=== PATIENT | female | born 1955 | race American Indian/Alaskan Native ===

== ENCOUNTER 2016-07-12 07:55 | Inpatient (IN) | payer OTHER ==
[2016-07-12 08:44] LABS: Basophils % (Auto) 0.2 % (0.0-1.8); Eosinophils % (Auto) 3.1 % (0.0-4.3); Hematocrit 35.9 % (30.3-42.9); Hemoglobin 11.5 gm/dl (10.1-14.3); Mean Corpuscular HGB Conc 32 % (30-34); Mean Corpuscular Hemoglobin 26 pg (28-32); Mean Corpuscular Volume 82 fl (79-97); Platelet Count 227 K/mm3 (140-440); Red Blood Count 4.38 M/mm3 (3.65-5.03); Red Cell Distribution Width 14.5 % (13.2-15.2)
[2016-07-12 09:31] LABS: Alanine Aminotransferase 29 units/L (7-56); Albumin/Globulin Ratio 1.2 %; Alkaline Phosphatase 108 units/L (35-129); Anion Gap 18 mmol/L; BUN/Creatinine Ratio 21.66; Blood Urea Nitrogen 13 mg/dL (7-17); Calcium 9.4 mg/dL (8.4-10.2); Carbon Dioxide 27 mmol/L (22-30); Chloride 98.6 mmol/L (98-107); Glucose 118 mg/dL (65-100); Lipase 27 units/L (13-60); Potassium 3.8 mmol/L (3.6-5.0); Sodium 140 mmol/L (137-145); Total Protein 7.3 g/dL (6.3-8.2)
[2016-07-12] MEDS ORDERED: NORCO 5/325 PO ONE (09:45)
--- NOTE | 2016-07-12 09:52 | Emergency Department Report ---
HPI - General Chief Complaint: Abdominal Pain Time Seen by Provider: 07/12/16 09:23 - HPI HPI: This is a 61-year-old female who presents to the emergency department with a two-week history of right upper quadrant and flank abdominal pain. This is associated with some nausea and vomiting. She denies any fever, dysuria, vaginal bleeding, vaginal discharge, back pain, shortness of breath, chest pain or headache. She says that the pain does not worsen or is not affected by eating. She also complains of some recent lower extremity pain worse on the left side. She denies any skin color change, swelling, but does have some recent travel from [place] within the past month. She is not currently have a primary care doctor here. She took a tramadol for her pain today with some relief. No sick contacts at home. She has a past medical history of diabetes, hypertension and hyperlipidemia. She has a past surgical history of hysterectomy. ED Past Medical Hx - Past Medical History Hx Hypertension: Yes Hx Diabetes: Yes Additional medical history: HYPERLIPIDEMIA - Surgical History Additional Surgical History: HYSTERECTOMY - Social History Smoking Status: Never Smoker Substance Use Type: Prescribed - Medications Home Medications: Home Medications Medication Instructions Recorded Confirmed Last Taken Type Lisinopril [Zestril TAB] 40 mg PO QDAY 07/12/16 07/12/16 Unknown History Simvastatin [Zocor TAB] 20 mg PO QHS 07/12/16 07/12/16 Unknown History glipiZIDE [Glucotrol] 5 mg PO BID 07/12/16 07/12/16 Unknown History metFORMIN [Glucophage] 1,000 mg PO BID 07/12/16 07/12/16 Unknown History traMADol [Ultram] 50 mg PO BID 07/12/16 07/12/16 07/12/16 History ED Review of Systems ROS: Stated complaint: DIABETIC Other details as noted in HPI Comment: All other systems reviewed and negative Constitutional: denies: chills, fever Eyes: denies: eye pain, eye discharge, vision change ENT: denies: ear pain, throat pain Respiratory: denies: cough, shortness of breath, wheezing Cardiovascular: denies: chest pain, palpitations Gastrointestinal: abdominal pain, nausea, vomiting Genitourinary: denies: urgency, dysuria, discharge Musculoskeletal: myalgia. denies: back pain, joint swelling Skin: denies: rash, lesions Neurological: denies: headache, weakness, paresthesias Physical Exam - Physical Exam Vital Signs: Vital Signs 07/12/16 08:09 Temperature 99.3 F Pulse Rate 97 H Respiratory 19 Rate Blood Pressure 140/87 O2 Sat by Pulse 96 Oximetry Physical Exam: GENERAL: The patient is well-developed well-nourished. HEENT: Normocephalic. Atraumatic. Extraocular motions are intact. Patient has moist mucous membranes. Pupils equal reactive to light bilaterally. NECK: Supple. Trachea is midline. CHEST/LUNGS: Clear to auscultation. There is no respiratory distress noted. HEART/CARDIOVASCULAR: Regular. There is no tachycardia. There is no gallop rub or murmur. ABDOMEN: Abdomen is soft. There is some reproducible tenderness to palpation to the right upper quadrant of the abdomen but the right flank pain is not reproducible to palpation. No guarding or rebound tenderness. Patient has normal bowel sounds. There is no abdominal distention. SKIN: Skin is warm and dry. No appreciable edema. NEURO: The patient is awake, alert, and oriented. The patient is cooperative. The patient has no focal neurologic deficits. The patient has normal speech. MUSCULOSKELETAL: There is no tenderness or deformity. There is no limitation range of motion. There is no evidence of acute injury. Pedal pulses +2 over 4 bilaterally. Cap refill less than 2 seconds. ED Course Vital Signs 07/12/16 08:09 Temperature 99.3 F Pulse Rate 97 H Respiratory 19 Rate Blood Pressure 140/87 O2 Sat by Pulse 96 Oximetry ED Medical Decision Making - Lab Data Result diagrams: 07/12/16 08:22 07/12/16 08:22 - Radiology Data Radiology results: report reviewed Bilateral lower extremity venous Doppler is positive for acute DVT noted on the right to be the posterior tibial vein extending to the posterior peroneal trunk and on the left from the posterior tibial vein and peroneal vein extending to the popliteal vein. RIGHT UPPER QUADRANT ULTRASOUND: HISTORY: Right upper quadrant pain. Technique: Transabdominal ultrasound imaging with Doppler interrogation. FINDINGS: The liver is normal size and contour. There are numerous ill-defined hypodense liver lesions scattered throughout the liver highly concerning for metastatic process. The largest lesion measures 3.8 x 4.0 cm in the right hepatic lobe. No obvious underlying liver parenchymal disease is appreciated. The gallbladder is sonolucent with no evidence of stones, polyps or wall thickening. The common duct is normal in caliber. Images of the pancreas, right kidney and aorta are within normal limits. No perihepatic ascites. IMPRESSION: Multiple liver masses are identified highly concerning for metastatic process. Cancer workup is recommended. Transcribed By: ISMAEL Dictated By: LISA GUERRA JR, MD Electronically Authenticated By: LISA GUERRA JR, MD Signed Date/Time: 07/12/[address] SCAN OF THE ABDOMEN AND PELVIS WITH CONTRAST: HISTORY: Abdominal pain. TECHNIQUE: Helical CT in 1.25mm intervals following IV contrast. Sagittal and coronal reconstructions. FINDINGS: The ultrasound right upper quadrant performed earlier today was again reviewed. CT also demonstrates numerous hypodense lesions throughout the liver consistent with a metastatic process. No underlying liver disease is appreciated. Borderline to mildly enlarged celiac axis lymph nodes are identified measuring up to 1.7 cm. The gallbladder and biliary system are unremarkable. The spleen and pancreas demonstrate a normal size and attenuation with no evidence of abnormal mass. The kidneys are normal in size and position with no evidence of hydronephrosis or mass. The adrenal glands are normal. The abdominal aorta is normal. The GI system is incompletely evaluated on this exam without oral contrast. There is no gross obstruction or large obstructing mass. Oral contrast examination is recommended. There is no evidence of peritoneal air or fluid. There is no evidence of any abnormal masses or fluid collections within the pelvis. The bladder is normal. Umbilical hernia containing fat is noted. IMPRESSION: Multiple hypodense liver masses are identified consistent with a metastatic process. Celiac axis adenopathy. The primary lesion is not clearly evident on this exam. Transcribed By: ISMAEL Dictated By: LISA GUERRA JR, MD Electronically Authenticated By: LISA GUERRA JR, MD Signed Date/Time: 07/12/16 1149 - Medical Decision Making This is a 61-year-old [place] female who presents with 2 complaints. She's been having some acute on chronic upper right abdominal pain and flank pain over the past 2-3 weeks. She also has been having some lower extremity pain and /or burning sensations. Due to the patient's recent history of a long flight from [facility] to [place] to [place], along with the lower extremity pain, a bilateral venous Doppler was done that resulted showing acute DVT bilaterally. The patient's labs have been mostly unremarkable. However with her right upper quadrant abdominal pain, a right upper quadrant ultrasound was done that came back showing multiple liver lesions/masses concerning for metastatic disease. A CT of the abdomen and pelvis was also done after this without any contrast that resulted the same with multiple liver lesions concerning for metastatic disease. The patient was given a dose of Lovenox at 1 unit per kilogram as a therapeutic dose for a DVT. She will be admitted to the hospital for further evaluation and treatment of both the bilateral DVT and her liver lesions. It should be noted that the family was all supposed to fly out of [place] tomorrow and with the patient's found conditions and admission, she will be missing her flight. I agreed to write a letter that the family could use to show the airline in the hopes that they will refund or may concessions regarding this missed flight. The patient's name, date of and the fact that she is in the hospital for admission was listed on the letter and I was given permission for this by the family who holds the letter and will do with it with a desire. No actual lab, imaging or physical exam results, nor any vital signs or any further medical information was given. - Differential Diagnosis malignancy, cholelithiasis, cholecystitis, pancreatitis, hepatitis, DVT, ne Critical Care Time: No Critical care attestation.: If time is entered above; I have spent that time in minutes in the direct care of this critically ill patient, excluding procedure time. ED Disposition Clinical Impression: Liver masses DVT, bilateral lower limbs Qualifiers: Affected thrombotic vein of extremity: unspecified vein of extremity Chronicity : acute Qualified Code(s): I82.403 - Acute embolism and thrombosis of unspecified deep veins of lower extremity, bilateral Abdominal pain Qualifiers: Abdominal location: right upper quadrant Qualified Code(s): R10.11 - Right upper quadrant pain Disposition: OP ADMITTED IP TO THIS HOSP Is pt being admited?: Yes Condition: Stable Instructions: Abdominal Pain (ED) Referrals: PRIMARY CARE, [Primary Care Provider] - 3-5 Days Time of Disposition: 12:33
[2016-07-12 09:59] LABS: Bilirubin,Urine NEG (Negative); Blood,Urine SM (Negative); Ketones,Urine NEG (Negative); Leukocyte Esterase,Urine NEG (Negative); Nitrite,Urine NEG (Negative); Protein,Urine <15 mg/dL mg/dL (Negative); Urobilinogen,Urine < 2.0 mg/dL (<2.0); WBC,Urine < 1.0 /HPF (0.0-6.0)
--- NOTE | 2016-07-12 10:48 | Ultrasound Report ---
RIGHT UPPER QUADRANT ULTRASOUND: HISTORY: Right upper quadrant pain. Technique: Transabdominal ultrasound imaging with Doppler interrogation. FINDINGS: The liver is normal size and contour. There are numerous ill-defined hypodense liver lesions scattered throughout the liver highly concerning for metastatic process. The largest lesion measures 3.8 x 4.0 cm in the right hepatic lobe. No obvious underlying liver parenchymal disease is appreciated. The gallbladder is sonolucent with no evidence of stones, polyps or wall thickening. The common duct is normal in caliber. Images of the pancreas, right kidney and aorta are within normal limits. No perihepatic ascites. IMPRESSION: Multiple liver masses are identified highly concerning for metastatic process. Cancer workup is recommended.
[2016-07-12] MEDS ORDERED: LOVENOX SUB-Q ONE (11:10)
--- NOTE | 2016-07-12 11:57 | Cat Scan Report ---
CT SCAN OF THE ABDOMEN AND PELVIS WITH CONTRAST: HISTORY: Abdominal pain. TECHNIQUE: Helical CT in 1.25mm intervals following IV contrast. Sagittal and coronal reconstructions. FINDINGS: The ultrasound right upper quadrant performed earlier today was again reviewed. CT also demonstrates numerous hypodense lesions throughout the liver consistent with a metastatic process. No underlying liver disease is appreciated. Borderline to mildly enlarged celiac axis lymph nodes are identified measuring up to 1.7 cm. The gallbladder and biliary system are unremarkable. The spleen and pancreas demonstrate a normal size and attenuation with no evidence of abnormal mass. The kidneys are normal in size and position with no evidence of hydronephrosis or mass. The adrenal glands are normal. The abdominal aorta is normal. The GI system is incompletely evaluated on this exam without oral contrast. There is no gross obstruction or large obstructing mass. Oral contrast examination is recommended. There is no evidence of peritoneal air or fluid. There is no evidence of any abnormal masses or fluid collections within the pelvis. The bladder is normal. Umbilical hernia containing fat is noted. IMPRESSION: Multiple hypodense liver masses are identified consistent with a metastatic process. Celiac axis adenopathy. The primary lesion is not clearly evident on this exam.
[2016-07-12] MEDS ORDERED: D50W (25GM) IV PRN (13:24)
--- NOTE | 2016-07-12 13:36 | History and Physical Report ---
History of Present Illness Date of examination: 07/12/16 Chief complaint: Abdominal pain History of present illness: 61-year-old Lebanese female with past medical history significant for hypertension, hyperlipidemia, diabetes mellitus presented to the emergency department complaining of abdominal pain that started 6 hours ago. Pain is in the right upper quadrant area, pinching type, 10 out of 10, with no radiation, exacerbating factors identified, pain relieved with pain medications. Patient is also complaining bilateral pain in the lower extremities, with associated swelling. Patient traveled recently from [facility]. Patient had with loss of 16 pounds over 4 months. No fever, chills, loss of appetite. Patient had occasional cough. REVIEW OF SYSTEMS: GENERAL: + weight loss, no fatigue, no fever HEAD: no head ache EYES: no blurry vision, no acute visual loss EARS: no hearing loss, no discharge, no earache NOSE: no stuffiness, no sneezing, no discharge MOUTH, THROAT AND NECK: no bleeding gums, no sore throat, no swollen neck CARDIAC: no palpitations, no dyspnea on exertion, no orthopnea, no PND, no edema , no chest pain RESPIRATORY: no shortness of breath, no wheeze, no cough, no sputum, no hemoptysis, no asthma GI: no decreased appetite, no nausea, no vomiting, no dysphagia, no diarrhea, no constipation, RUQ abdominal pain URINARY: no change in frequency, no urgency, no polyuria, no hematuria, no incontinence MUSCULOSKELETAL: no muscle weakness, no pain, no joint stiffness NEUROLOGIC: no loss of sensation/numbness, no tingling, no tremors, no weakness/ paralysis HEMATOLOGIC: no anemia, no easy bruising SKIN: no rashes ENDOCRINE: no heat/cold intolerance, no polyuria, no polydipsia, no thyroid problems, + diabetes PSYCHIATRIC: no anxiety, no depression, no suicidal ideations Past History Past Medical History: diabetes, hypertension, hyperlipidemia Past Surgical History: hysterectomy Social history: full code. denies: smoking, alcohol abuse, prescription drug abuse Family history: no significant family history Medications and Allergies Allergies Allergy/AdvReac Type Severity Reaction Status Date / Time ibuprofen [From Motrin] Allergy Hives Verified 07/12/16 08:18 Home Medications Medication Instructions Recorded Confirmed Last Taken Type Lisinopril [Zestril TAB] 40 mg PO QDAY 07/12/16 07/12/16 Unknown History Simvastatin [Zocor TAB] 20 mg PO QHS 07/12/16 07/12/16 Unknown History glipiZIDE [Glucotrol] 5 mg PO BID 07/12/16 07/12/16 Unknown History metFORMIN [Glucophage] 1,000 mg PO BID 07/12/16 07/12/16 Unknown History traMADol [Ultram] 50 mg PO BID 07/12/16 07/12/16 07/12/16 History Active Meds: Active Medications Dextrose (D50w (25gm)) 50 ml IV PRN PRN PRN Reason: Hypoglycemia Enoxaparin Sodium (Lovenox) 80 mg SUB-Q BID MADELAINE Insulin Aspart (Novolog) 0 units SUB-Q QHS MADELAINE PRN Reason: Protocol Lisinopril (Zestril) 40 mg PO QDAY MADELIANE Simvastatin (Zocor) 20 mg PO QHS MADELAINE Tramadol HCl (Ultram) 50 mg PO BID MADELAINE Exam - Physical Exam Narrative exam: Not in cardiopulmonary distress. The patient appeared well nourished and normally developed. Vital signs as documented. Head exam is unremarkable. Scleral icterus . Neck is without jugular venous distension, thyromegaly, or carotid bruits. Lungs are clear to auscultation. Cardiac exam reveals regular rate and Rhythm. First and second heart sounds normal. No murmurs, rubs or gallops. Abdominal exam reveals normal bowel sounds, no masses, no organomegaly and no aortic enlargement. Extremities are nonedematous and both femoral and pedal pulses are normal. BUILDINGS AND GROUNDS DIRECTOR: Alert and oriented 3. No focal weakness. - Constitutional Vitals: Temp Pulse Resp BP Pulse Ox 99.3 F 97 H 18 140/87 96 07/12/16 08:09 07/12/16 08:09 07/12/16 09:45 07/12/16 08:09 07/12/16 08:09 Results - Labs CBC & Chem 7: 07/12/16 08:22 07/12/16 08:22 Labs: Laboratory Last Values WBC 12.0 K/mm3 (4.5-11.0) H 07/12/16 08:22 RBC 4.38 M/mm3 (3.65-5.03) 07/12/16 08:22 Hgb 11.5 gm/dl (10.1-14.3) 07/12/16 08:22 Hct 35.9 % (30.3-42.9) 07/12/16 08:22 MCV 82 fl (79-97) 07/12/16 08:22 MCH 26 pg (28-32) L 07/12/16 08:22 MCHC 32 % (30-34) 07/12/16 08:22 RDW 14.5 % (13.2-15.2) 07/12/16 08:22 Plt Count 227 K/mm3 (140-440) 07/12/16 08:22 Lymph % (Auto) 18.9 % (13.4-35.0) 07/12/16 08:22 Bee % (Auto) 8.4 % (0.0-7.3) H 07/12/16 08:22 Eos % (Auto) 3.1 % (0.0-4.3) 07/12/16 08:22 Baso % (Auto) 0.2 % (0.0-1.8) 07/12/16 08:22 Lymph # 2.3 K/mm3 (1.2-5.4) 07/12/16 08:22 Bee # 1.0 K/mm3 (0.0-0.8) H 07/12/16 08:22 Eos # 0.4 K/mm3 (0.0-0.4) 07/12/16 08:22 Baso # 0.0 K/mm3 (0.0-0.1) 07/12/16 08:22 Seg Neutrophils % 69.4 % (40.0-70.0) 07/12/16 08:22 Seg Neutrophils # 8.3 K/mm3 (1.8-7.7) H 07/12/16 08:22 Sodium 140 mmol/L (137-145) 07/12/16 08:22 Potassium 3.8 mmol/L (3.6-5.0) 07/12/16 08:22 Chloride 98.6 mmol/L (98-107) 07/12/16 08:22 Carbon Dioxide 27 mmol/L (22-30) 07/12/16 08:22 Anion Gap 18 mmol/L 07/12/16 08:22 BUN 13 mg/dL (7-17) 07/12/16 08:22 Creatinine 0.6 mg/dL (0.7-1.2) L 07/12/16 08:22 Estimated GFR > 60 ml/min 07/12/16 08:22 BUN/Creatinine Ratio 21.66 % 07/12/16 08:22 Glucose 118 mg/dL (65-100) H 07/12/16 08:22 POC Glucose 122 (70-105) H 07/12/16 07:57 Calcium 9.4 mg/dL (8.4-10.2) 07/12/16 08:22 Total Bilirubin 0.70 mg/dL (0.1-1.2) 07/12/16 08:22 AST 22 units/L (5-40) 07/12/16 08:22 ALT 29 units/L (7-56) 07/12/16 08:22 Alkaline Phosphatase 108 units/L (35-129) 07/12/16 08:22 Total Protein 7.3 g/dL (6.3-8.2) 07/12/16 08:22 Albumin 4.0 g/dL (3.9-5) 07/12/16 08:22 Albumin/Globulin Ratio 1.2 % 07/12/16 08:22 Lipase 27 units/L (13-60) 07/12/16 08:22 Urine Color Yellow (Yellow) 07/12/16 09:17 Urine Turbidity Clear (Clear) 07/12/16 09:17 Urine pH 7.0 (5.0-7.0) 07/12/16 09:17 Ur Specific [place] 1.020 (1.003-1.030) 07/12/16 09:17 Urine Protein <15 mg/dl mg/dL (Negative) 07/12/16 09:17 Urine Glucose (UA) Neg mg/dL (Negative) 07/12/16 09:17 Urine Ketones Neg mg/dL (Negative) 07/12/16 09:17 Urine Blood Sm (Negative) 07/12/16 09:17 Urine Nitrite Neg (Negative) 07/12/16 09:17 Urine Bilirubin Neg (Negative) 07/12/16 09:17 Urine Urobilinogen < 2.0 mg/dL (<2.0) 07/12/16 09:17 Ur Leukocyte Esterase Neg (Negative) 07/12/16 09:17 Urine WBC (Auto) < 1.0 /HPF (0.0-6.0) 07/12/16 09:17 Urine RBC (Auto) 6.0 /HPF (0.0-6.0) 07/12/16 09:17 U Epithel Cells (Auto) 3.0 /HPF (0-13.0) 07/12/16 09:17 Assessment and Plan Assessment and plan: Bilateral lower extremity DVT - Therapeutic Lovenox Multiple masses in the liver/ metastatic cancer -With unknown primary - CT of the chest, alpha-fetoprotein - Oncology consult Diabetes - SSI Hypertension - Continue home medications HLD - continue simvastatin Disposition - to medical floor Advance Directives: Yes VTE prophylaxis?: Chemical Plan of care discussed with patient/family: Yes
--- NOTE | 2016-07-12 15:28 | Cat Scan Report ---
FINAL REPORT EXAM: CT CHEST WO CON HISTORY: liver mets TECHNIQUE: CT examination of the chest without IV contrast PRIORS: AP CT 07/12/2016 FINDINGS: Slight cardiomegaly without pericardial effusion. Intact normal caliber thoracic aorta. Normal-appearing esophagus. Nonspecific completely calcified 9 mm nodule in left thyroid lower pole. No evidence of hilar mass or mediastinal adenopathy. Scattered lymph nodes in the mediastinum or within normal limits by CT size criteria. Subtle multiple low-density lesions are again noted in the right and left hepatic lobes, too numerous to count. These are much less conspicuous without immediate IV contrast. No evidence of lesion calcification. Residual IV contrast is noted in the renal collecting system bilaterally from abdomen CT earlier today. Hepatomegaly with sagittal dimension of 20.2 cm. Bone windows demonstrate no acute fracture or focal osseous lesion. No pneumothorax or pleural effusion. Respiratory motion limits pulmonary parenchymal evaluation. No definite evidence of lung mass or nodule. IMPRESSION: Hepatomegaly with multiple liver lesions suspicious for metastatic disease. The differential includes multifocal hepatocellular carcinoma or multiple areas of inflammation/infection Slight cardiomegaly Nonspecific completely calcified 9 mm left thyroid lower pole nodule
--- NOTE | 2016-07-12 17:57 | Admit Criteria Form ---
Admission Criteria Documentation: ABDOMINAL PAIN Clinical Indications for Admission to Inpatient Care (Place 'X' for any and all applicable criteria): Admission is indicated for ANY ONE of the following(1)(2)(3)(4)(5): [X ]I. Inpatient admission required rather than observation care (Also use Abdominal Pain: Observation Care, as appropriate) because of ANY ONE of the following: [X ]a) Severe pain requiring acute inpatient management [X ]b) Identification of etiology/finding that requires inpatient care (eg, aortic dissection, free air) [ ]c) Absent bowel sounds with complete ileus(6) [ ]d) Suspected toxic megacolon [ ]e) Severe electrolyte abnormalities requiring inpatient care [ ]f) High fever or infection requiring inpatient admission as indicated by ANY ONE of following(7)(8): [ ] i) Appropriate outpatient or observational care antimicrobial treatment unavailable, not effective, or not feasible [ ] ii) Documented bacteremia [ ] iii) Temperature > 104.9 degrees F (oral) [ ] iv) T >103.1 F (oral) or < 96.8 F(rectal) that does not respond to all emergency treatment measures [ ]g) Signs of intestinal obstruction [B] [ ]h) Hemodynamic instability [ ]i) IV fluid to replace significant ongoing losses (greater than 3 L/m2 per day) (12)(13) [ ]j) Percutaneous or open drainage (eg, abscess, biliary tract ) procedures [ ]k) Parenteral nutrition regimen that must be implemented on inpatient basis [X ]l) Other condition,treatment or monitoring requiring inpatient admission. [ ]II. Peritoneal signs present [ ]III. Surgery needed that cannot be performed on an ambulatory basis. [ ]IV. Evaluation requires patient to not eat or drink for extended period ( eg, more than 24 hours). [ ]V. Contraindications and/or Inappropriate clinical situations for Observational Care in patients with abdominal pain, when ANY ONE of the following is required: [ ]a) Thorough evaluation is required to prevent catastrophic events due to delays in diagnosing (e.g.Mesenteric ischemia) 1,3 [ ]b) Patient with severe pathology or with chronic symptoms unlikely to improve in the ED stay (3) [ ]. General contraindications and/or Inappropriate clinical situations for Observational Care in patients with abdominal pain, when ANY ONE of the following is required: [ ]a) Prediction of prolongation of LOS based on ANY ONE of the following may be considered as a contraindication for observational care 2, 3, 4, 5, 6, 7, 8, 9, 10, 11 [ ]i) Age > 65 yrs. [ ]ii) Patient arriving by ambulance [ ]iii) Patient with high acuity [ ]iv) Patient requiring vital sign monitoring [ ]v) Patient on IV medication [ ]b) Systolic blood pressures 180mmHg 3,12 [ ]c) Patient with altered mental status including delirium and other alteration of consciousness, (3) [ ]d) Patient whose discharge disposition will be to a usp home or rehabilitation home should not be managed in Emergency Department Observation Unit. CMS rule requires 3 days hospital stay before such placement.3,13 [ ]e) Patient with failure to thrive due to broad array of etiologies 3,16,17 [ ]f) Inability to ambulate 3,14 Extended stay beyond goal length of stay may be needed for(2)(3): [ ]a) Persistent abdominal pain with suspected intra-abdominal process [ ]b) Diagnosed condition requiring continued stay (e.g., pancreatitis, complicated diverticulitis) [ ]c) Surgery (e.g., colectomy) The original [employer] [facility] content created by [employer] has been revised. The portions of the content which have been revised are identified through the use of italic text or in bold, and [facility] has neither reviewed nor approved the modified material.All other unmodified content is copyright [employer]. Please see references footnoted in the original [employer] [facility] [employer] edition 2016 Admission Criteria Met: Yes
[2016-07-12] MEDS: LOVENOX SUB-Q SCH (21:19)
[2016-07-12] MEDS: ULTRAM PO SCH (21:20)
[2016-07-12] MEDS: ZOCOR PO SCH (21:21)
[2016-07-13] MEDS: NOVOLOG SUB-Q SCH ×2 (00:04→23:26)
[2016-07-13 06:18] LABS: Basophils % (Auto) 0.2 % (0.0-1.8); Eosinophils % (Auto) 3.7 % (0.0-4.3); Hematocrit 36.9 % (30.3-42.9); Mean Corpuscular HGB Conc 32 % (30-34); Mean Corpuscular Hemoglobin 27 pg (28-32); Mean Corpuscular Volume 82 fl (79-97); Platelet Count 238 K/mm3 (140-440); Red Cell Distribution Width 14.6 % (13.2-15.2); White Blood Count 10.7 K/mm3 (4.5-11.0)
[2016-07-13 06:41] LABS: Alanine Aminotransferase 26 units/L (7-56); Albumin 3.8 g/dL (3.9-5); Albumin/Globulin Ratio 1.1 %; Alkaline Phosphatase 108 units/L (35-129); Anion Gap 21 mmol/L; BUN/Creatinine Ratio 21.42; Blood Urea Nitrogen 15 mg/dL (7-17); Calcium 9.8 mg/dL (8.4-10.2); Carbon Dioxide 27 mmol/L (22-30); Chloride 97.2 mmol/L (98-107); Glucose 114 mg/dL (65-100); Potassium 4.2 mmol/L (3.6-5.0); Sodium 141 mmol/L (137-145); Total Protein 7.3 g/dL (6.3-8.2)
--- NOTE | 2016-07-13 09:02 | Progress Note ---
Assessment and Plan Assessment and plan: 61-year-old [place] female with past medical history significant for hypertension, hyperlipidemia, diabetes mellitus presented to the emergency department complaining of abdominal pain that started 6 hours ago. Pain is in the right upper quadrant area, pinching type, 10 out of 10, with no radiation, exacerbating factors identified, pain relieved with pain medications. Patient is also complaining bilateral pain in the lower extremities, with associated swelling. Patient traveled recently from [facility]. Patient had with loss of 16 pounds over 4 months. No fever, chills, loss of appetite. Patient had occasional cough. 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 We'll obtain oncology consult and also GI consult concern and if this is primary from the GI tract. * Await alpha-fetoprotein * CT chest reviewed no lesions in the chest at this time. * Continue sliding scale coverage and blood pressure control with Accu-Cheks and simvastatin * Continue full dose Enoxaparin apparent if colonoscopy is to be performed patient require an IVC filter with anticoagulation held for better diagnosis. * Plan of care discussed with the patient also with the daughter Ms Alfred at - [phone] * DVT and GI prophylaxis History Interval history: Patient seen and examined in no acute distress report some improvement. She is a poor historian and most of the information I did obtain from the daughter. No other adverse event reported to me this morning. Hospitalist Physical - Physical exam Narrative exam: VITAL SIGNS: Reviewed. GENERAL: The patient appeared well nourished and normally developed. Vital signs as documented. HEAD: No signs of head trauma. EYES: Pupils are equal. Extraocular motions intact. EARS: Hearing grossly intact. MOUTH: Oropharynx is normal. NECK: No adenopathy, no JVD. CHEST: Chest with clear breath sounds bilaterally. No wheezes, rales, or rhonchi. CARDIAC: Regular rate and rhythm. S1 and S2, without murmurs, gallops, or rubs. VASCULAR: No Edema. Peripheral pulses normal and equal in all extremities. ABDOMEN: Soft, without detectable tenderness. No sign of distention. No rebound or guarding, and no masses palpated. Bowel Sounds normal. MUSCULOSKELETAL: Good range of motion of all major joints. Extremities without clubbing, cyanosis or edema. NEUROLOGIC EXAM: Alert and oriented x 3. No focal sensory or strength deficits. Speech normal. Follows commands. PSYCHIATRIC: Mood normal. SKIN: No rash or lesions. - Constitutional Vitals: Temp Pulse Resp BP Pulse Ox 98.3 F 92 H 18 120/82 98 07/13/16 08:00 07/13/16 08:00 07/13/16 08:00 07/13/16 08:00 07/13/16 08:00 Results - Labs CBC & Chem 7: 07/13/16 05:48 07/13/16 05:48 Labs: Laboratory Last Values WBC 10.7 K/mm3 (4.5-11.0) 07/13/16 05:48 RBC 4.50 M/mm3 (3.65-5.03) 07/13/16 05:48 Hgb 12.0 gm/dl (10.1-14.3) 07/13/16 05:48 Hct 36.9 % (30.3-42.9) 07/13/16 05:48 MCV 82 fl (79-97) 07/13/16 05:48 MCH 27 pg (28-32) L 07/13/16 05:48 MCHC 32 % (30-34) 07/13/16 05:48 RDW 14.6 % (13.2-15.2) 07/13/16 05:48 Plt Count 238 K/mm3 (140-440) 07/13/16 05:48 Lymph % (Auto) 22.9 % (13.4-35.0) 07/13/16 05:48 [place] % (Auto) 8.9 % (0.0-7.3) H 07/13/16 05:48 Eos % (Auto) 3.7 % (0.0-4.3) 07/13/16 05:48 Baso % (Auto) 0.2 % (0.0-1.8) 07/13/16 05:48 Lymph # 2.4 K/mm3 (1.2-5.4) 07/13/16 05:48 [place] # 0.9 K/mm3 (0.0-0.8) H 07/13/16 05:48 Eos # 0.4 K/mm3 (0.0-0.4) 07/13/16 05:48 Baso # 0.0 K/mm3 (0.0-0.1) 07/13/16 05:48 Seg Neutrophils % 64.3 % (40.0-70.0) 07/13/16 05:48 Seg Neutrophils # 6.9 K/mm3 (1.8-7.7) 07/13/16 05:48 Sodium 141 mmol/L (137-145) 07/13/16 05:48 Potassium 4.2 mmol/L (3.6-5.0) 07/13/16 05:48 Chloride 97.2 mmol/L (98-107) L 07/13/16 05:48 Carbon Dioxide 27 mmol/L (22-30) 07/13/16 05:48 Anion Gap 21 mmol/L 07/13/16 05:48 BUN 15 mg/dL (7-17) 07/13/16 05:48 Creatinine 0.7 mg/dL (0.7-1.2) 07/13/16 05:48 Estimated GFR > 60 ml/min 07/13/16 05:48 BUN/Creatinine Ratio 21.42 % 07/13/16 05:48 Glucose 114 mg/dL (65-100) H 07/13/16 05:48 POC Glucose 114 (70-105) H 07/13/16 06:34 Hemoglobin A1c 6.0 % (4-6) 07/12/16 08:22 Calcium 9.8 mg/dL (8.4-10.2) 07/13/16 05:48 Total Bilirubin 0.60 mg/dL (0.1-1.2) 07/13/16 05:48 AST 20 units/L (5-40) 07/13/16 05:48 ALT 26 units/L (7-56) 07/13/16 05:48 Alkaline Phosphatase 108 units/L (35-129) 07/13/16 05:48 Total Protein 7.3 g/dL (6.3-8.2) 07/13/16 05:48 Albumin 3.8 g/dL (3.9-5) L 07/13/16 05:48 Albumin/Globulin Ratio 1.1 % 07/13/16 05:48 Triglycerides 97 mg/dL (2-149) 07/12/16 08:22 Cholesterol 163 mg/dL (50-199) 07/12/16 08:22 LDL Cholesterol Direct 84 mg/dL (50-130) 07/12/16 08:22 HDL Cholesterol 60 mg/dL (40-59) H 07/12/16 08:22 Cholesterol/HDL Ratio 2.71 % 07/12/16 08:22 Lipase 27 units/L (13-60) 07/12/16 08:22 Urine Color Yellow (Yellow) 07/12/16 09:17 Urine Turbidity Clear (Clear) 07/12/16 09:17 Urine pH 7.0 (5.0-7.0) 07/12/16 09:17 Ur Specific [place] 1.020 (1.003-1.030) 07/12/16 09:17 Urine Protein <15 mg/dl mg/dL (Negative) 07/12/16 09:17 Urine Glucose (UA) Neg mg/dL (Negative) 07/12/16 09:17 Urine Ketones Neg mg/dL (Negative) 07/12/16 09:17 Urine Blood Sm (Negative) 07/12/16 09:17 Urine Nitrite Neg (Negative) 07/12/16 09:17 Urine Bilirubin Neg (Negative) 07/12/16 09:17 Urine Urobilinogen < 2.0 mg/dL (<2.0) 07/12/16 09:17 Ur Leukocyte Esterase Neg (Negative) 07/12/16 09:17 Urine WBC (Auto) < 1.0 /HPF (0.0-6.0) 07/12/16 09:17 Urine RBC (Auto) 6.0 /HPF (0.0-6.0) 07/12/16 09:17 U Epithel Cells (Auto) 3.0 /HPF (0-13.0) 07/12/16 09:17 - Imaging and Cardiology CT scan - abdomen: image reviewed (multiple hepatic lesion) CT scan - chest: image reviewed CT scan - pelvis: image reviewed
[2016-07-13 09:59] LABS: INR 0.99 (0.87-1.13)
--- NOTE | 2016-07-13 10:32 | Gastroenterology Consultation ---
History of Present Illness - Reason for Consult Consult date: 07/13/16 evaluate for GI malignancy Requesting physician: RUKHSANA ROWLAND - History of Present Illness Ms Brito is a 61 yo female who presents with ~2 weeks history of worsening lower extremity leg pain, and recent right upper quadrant abd pain. History gathered from patient, and patient's daughter over the phone. She recently returned from [facility] ~2 weeks ago following long flights and delays. After returning, she began having symptoms of LLE pain/swelling which progressed to right leg as well. She recently started experiencing RUQ abd pain with meals. Pt found to have bilateral LE DVT's, and numerous liver lesions/celiac adenopathy on imaging concerning for metastatic malignancy. She denies weight loss, gi bleeding, change in bowel habits, or dysphagia. + pain with meals. Denies having prior colonoscopy/EGD. Past History Past Medical History: diabetes, hypertension, hyperlipidemia Past Surgical History: hysterectomy Social history: full code. denies: smoking, alcohol abuse, prescription drug abuse Family history: no significant family history Medications and Allergies Allergies Allergy/AdvReac Type Severity Reaction Status Date / Time ibuprofen [From Motrin] Allergy Hives Verified 07/12/16 08:18 Home Medications Medication Instructions Recorded Confirmed Last Taken Type Lisinopril [Zestril TAB] 40 mg PO QDAY 07/12/16 07/12/16 Unknown History Simvastatin [Zocor TAB] 20 mg PO QHS 07/12/16 07/12/16 Unknown History glipiZIDE [Glucotrol] 5 mg PO BID 07/12/16 07/12/16 Unknown History metFORMIN [Glucophage] 1,000 mg PO BID 07/12/16 07/12/16 Unknown History traMADol [Ultram] 50 mg PO BID 07/12/16 07/12/16 07/12/16 History Active Meds: Active Medications Dextrose (D50w (25gm)) 50 ml IV PRN PRN PRN Reason: Hypoglycemia Enoxaparin Sodium (Lovenox) 80 mg SUB-Q BID [facility] Last Admin: 07/12/16 21:19 Dose: 80 mg Insulin Aspart (Novolog) 0 units SUB-Q QHS [facility] PRN Reason: Protocol Last Admin: 07/13/16 00:04 Dose: Not Given Lisinopril (Zestril) 40 mg PO QDAY [facility] Simvastatin (Zocor) 20 mg PO QHS [facility] Last Admin: 07/12/16 21:21 Dose: 20 mg Tramadol HCl (Ultram) 50 mg PO BID [facility] Last Admin: 07/12/16 21:20 Dose: 50 mg Review of Systems - Review of Systems All systems: negative Constitutional: weakness Gastrointestinal: See HPI Exam - Exam Narrative Exam: Gen: NAD, resting comfortably head: nc/at eyes: anicteric, perrl, eomi Mouth: no oral lesions, mmm Neck: no JVD CV: RRR, no murmurs Lungs: CTAB, non labored Abd: soft, mild upper/ruq ttp, no r/g, nd, +bs Ext: trace edema Neuro: grossly normal, oriented x 3 psych: appropriate mood and affect - Constitutional Vital Signs: Temp Pulse Resp BP Pulse Ox 98.3 F 92 H 18 120/82 98 07/13/16 08:00 07/13/16 08:00 07/13/16 08:00 07/13/16 08:00 07/13/16 08:00 - Labs CBC & Chem 7: 07/13/16 05:48 07/13/16 05:48 Lab Results: Laboratory Results - last 24 hr 07/12/16 07/12/16 07/13/16 16:34 20:15 05:48 WBC 10.7 RBC 4.50 Hgb 12.0 Hct 36.9 MCV 82 MCH 27 L MCHC 32 RDW 14.6 Plt Count 238 Lymph % (Auto) 22.9 [place] % (Auto) 8.9 H Eos % (Auto) 3.7 Baso % (Auto) 0.2 Lymph # 2.4 [place] # 0.9 H Eos # 0.4 Baso # 0.0 Seg Neutrophils % 64.3 Seg Neutrophils # 6.9 PT INR Sodium Potassium Chloride Carbon Dioxide Anion Gap BUN Creatinine Estimated GFR BUN/Creatinine Ratio Glucose POC Glucose 221 H 127 H Calcium Total Bilirubin AST ALT Alkaline Phosphatase Total Protein Albumin Albumin/Globulin Ratio 07/13/16 07/13/16 07/13/16 05:48 06:34 09:31 WBC RBC Hgb Hct MCV MCH MCHC RDW Plt Count Lymph % (Auto) [place] % (Auto) Eos % (Auto) Baso % (Auto) Lymph # [place] # Eos # Baso # Seg Neutrophils % Seg Neutrophils # PT 13.0 INR 0.99 Sodium 141 Potassium 4.2 Chloride 97.2 L Carbon Dioxide 27 Anion Gap 21 BUN 15 Creatinine 0.7 Estimated GFR > 60 BUN/Creatinine Ratio 21.42 Glucose 114 H POC Glucose 114 H Calcium 9.8 Total Bilirubin 0.60 AST 20 ALT 26 Alkaline Phosphatase 108 Total Protein 7.3 Albumin 3.8 L Albumin/Globulin Ratio 1.1 Assessment and Plan Ms Brito is a 61 yo female presenting with lower extremity DVT's, and imaging findings concerning for metastatic malignancy. Primary source unclear at this point. Denies having prior colonoscopy/EGD. Pt currently receiving therapeutic lovenox for DVT's. She had solid meals today ([employer]), so will plan for possible EGD/colonoscopy on Thursday (colonoscopy prep tomorrow). Consider checking tumor markers, will f/u heme-onc reccs.
[2016-07-13] MEDS: LOVENOX SUB-Q SCH ×2 (10:41→21:08)
[2016-07-13] MEDS: ZESTRIL PO SCH (10:42)
[2016-07-13] MEDS: ULTRAM PO SCH ×2 (10:43→21:07)
[2016-07-13] MEDS: ZOCOR PO SCH (21:08)
[2016-07-14 08:10] LABS: Hemoglobin 11.9 gm/dl (10.1-14.3); Mean Corpuscular HGB Conc 32 % (30-34); Mean Corpuscular Hemoglobin 26 pg (28-32); Mean Corpuscular Volume 82 fl (79-97); Platelet Count 276 K/mm3 (140-440); Red Cell Distribution Width 14.7 % (13.2-15.2)
[2016-07-14 08:17] LABS: Anion Gap 21 mmol/L; BUN/Creatinine Ratio 18.57; Blood Urea Nitrogen 13 mg/dL (7-17); Calcium 9.6 mg/dL (8.4-10.2); Carbon Dioxide 27 mmol/L (22-30); Chloride 97.9 mmol/L (98-107); Glucose 137 mg/dL (65-100); Sodium 142 mmol/L (137-145)
[2016-07-14] MEDS: ULTRAM PO SCH ×2 (09:00→21:08)
[2016-07-14] MEDS: ZESTRIL PO SCH (09:00)
[2016-07-14] MEDS: LOVENOX SUB-Q SCH ×2 (09:00→21:09)
--- NOTE | 2016-07-14 10:10 | Progress Note ---
Assessment and Plan Assessment and plan: 61-year-old [place] female with past medical history significant for hypertension, hyperlipidemia, diabetes mellitus presented to the emergency department complaining of abdominal pain that started 6 hours ago. Pain is in the right upper quadrant area, pinching type, 10 out of 10, with no radiation, exacerbating factors identified, pain relieved with pain medications. Patient is also complaining bilateral pain in the lower extremities, with associated swelling. Patient traveled recently from [facility]. Patient had with loss of 16 pounds over 4 months. No fever, chills, loss of appetite. Patient had occasional cough. 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 oncology consult pending, GI input appreciated, patient is planned for endoscopy and colonoscopy on Thursday * Await alpha-fetoprotein * CT chest reviewed no lesions in the chest at this time. * Continue sliding scale coverage and blood pressure control with Accu-Cheks and simvastatin * Continue full dose Enoxaparin apparent if colonoscopy is to be performed * Plan of care discussed with the patient also with the daughter Ms Alfred at - [phone] * DVT and GI prophylaxis History Interval history: she feels well, has no complaints Hospitalist Physical - Physical exam Narrative exam: VITAL SIGNS: Reviewed. GENERAL: The patient appeared well nourished and normally developed. Vital signs as documented. HEAD: No signs of head trauma. EYES: Pupils are equal. Extraocular motions intact. EARS: Hearing grossly intact. MOUTH: Oropharynx is normal. NECK: No adenopathy, no JVD. CHEST: Chest with clear breath sounds bilaterally. No wheezes, rales, or rhonchi. CARDIAC: Regular rate and rhythm. S1 and S2, without murmurs, gallops, or rubs. VASCULAR: No Edema. Peripheral pulses normal and equal in all extremities. ABDOMEN: Soft, without detectable tenderness. No sign of distention. No rebound or guarding, and no masses palpated. Bowel Sounds normal. MUSCULOSKELETAL: Good range of motion of all major joints. Extremities without clubbing, cyanosis or edema. NEUROLOGIC EXAM: Alert and oriented x 3. No focal sensory or strength deficits. Speech normal. Follows commands. PSYCHIATRIC: Mood normal. SKIN: No rash or lesions. - Constitutional Vitals: Temp Pulse Resp BP Pulse Ox 98.9 F 95 H 20 135/60 96 07/14/16 07:00 07/14/16 07:00 07/14/16 09:00 07/14/16 09:00 07/14/16 07:00 Results - Labs CBC & Chem 7: 07/14/16 07:20 07/14/16 07:20 Labs: Laboratory Last Values WBC 12.0 K/mm3 (4.5-11.0) H 07/14/16 07:20 RBC 4.50 M/mm3 (3.65-5.03) 07/14/16 07:20 Hgb 11.9 gm/dl (10.1-14.3) 07/14/16 07:20 Hct 37.0 % (30.3-42.9) 07/14/16 07:20 MCV 82 fl (79-97) 07/14/16 07:20 MCH 26 pg (28-32) L 07/14/16 07:20 MCHC 32 % (30-34) 07/14/16 07:20 RDW 14.7 % (13.2-15.2) 07/14/16 07:20 Plt Count 276 K/mm3 (140-440) 07/14/16 07:20 Lymph % (Auto) 22.9 % (13.4-35.0) 07/13/16 05:48 [place] % (Auto) 8.9 % (0.0-7.3) H 07/13/16 05:48 Eos % (Auto) 3.7 % (0.0-4.3) 07/13/16 05:48 Baso % (Auto) 0.2 % (0.0-1.8) 07/13/16 05:48 Lymph # 2.4 K/mm3 (1.2-5.4) 07/13/16 05:48 [place] # 0.9 K/mm3 (0.0-0.8) H 07/13/16 05:48 Eos # 0.4 K/mm3 (0.0-0.4) 07/13/16 05:48 Baso # 0.0 K/mm3 (0.0-0.1) 07/13/16 05:48 Seg Neutrophils % 64.3 % (40.0-70.0) 07/13/16 05:48 Seg Neutrophils # 6.9 K/mm3 (1.8-7.7) 07/13/16 05:48 PT 13.0 Sec. (12.2-14.9) 07/13/16 09:31 INR 0.99 (0.87-1.13) 07/13/16 09:31 Sodium 142 mmol/L (137-145) 07/14/16 07:20 Potassium 4.0 mmol/L (3.6-5.0) 07/14/16 07:20 Chloride 97.9 mmol/L (98-107) L 07/14/16 07:20 Carbon Dioxide 27 mmol/L (22-30) 07/14/16 07:20 Anion Gap 21 mmol/L 07/14/16 07:20 BUN 13 mg/dL (7-17) 07/14/16 07:20 Creatinine 0.7 mg/dL (0.7-1.2) 07/14/16 07:20 Estimated GFR > 60 ml/min 07/14/16 07:20 BUN/Creatinine Ratio 18.57 % 07/14/16 07:20 Glucose 137 mg/dL (65-100) H 07/14/16 07:20 POC Glucose 112 (70-105) H 07/14/16 06:20 Hemoglobin A1c 6.0 % (4-6) 07/12/16 08:22 Calcium 9.6 mg/dL (8.4-10.2) 07/14/16 07:20 Total Bilirubin 0.60 mg/dL (0.1-1.2) 07/13/16 05:48 AST 20 units/L (5-40) 07/13/16 05:48 ALT 26 units/L (7-56) 07/13/16 05:48 Alkaline Phosphatase 108 units/L (35-129) 07/13/16 05:48 Total Protein 7.3 g/dL (6.3-8.2) 07/13/16 05:48 Albumin 3.8 g/dL (3.9-5) L 07/13/16 05:48 Albumin/Globulin Ratio 1.1 % 07/13/16 05:48 Triglycerides 97 mg/dL (2-149) 07/12/16 08:22 Cholesterol 163 mg/dL (50-199) 07/12/16 08:22 LDL Cholesterol Direct 84 mg/dL (50-130) 07/12/16 08:22 HDL Cholesterol 60 mg/dL (40-59) H 07/12/16 08:22 Cholesterol/HDL Ratio 2.71 % 07/12/16 08:22 Lipase 27 units/L (13-60) 07/12/16 08:22 Urine Color Yellow (Yellow) 07/12/16 09:17 Urine Turbidity Clear (Clear) 07/12/16 09:17 Urine pH 7.0 (5.0-7.0) 07/12/16 09:17 Ur Specific [place] 1.020 (1.003-1.030) 07/12/16 09:17 Urine Protein <15 mg/dl mg/dL (Negative) 07/12/16 09:17 Urine Glucose (UA) Neg mg/dL (Negative) 07/12/16 09:17 Urine Ketones Neg mg/dL (Negative) 07/12/16 09:17 Urine Blood Sm (Negative) 07/12/16 09:17 Urine Nitrite Neg (Negative) 07/12/16 09:17 Urine Bilirubin Neg (Negative) 07/12/16 09:17 Urine Urobilinogen < 2.0 mg/dL (<2.0) 07/12/16 09:17 Ur Leukocyte Esterase Neg (Negative) 07/12/16 09:17 Urine WBC (Auto) < 1.0 /HPF (0.0-6.0) 07/12/16 09:17 Urine RBC (Auto) 6.0 /HPF (0.0-6.0) 07/12/16 09:17 U Epithel Cells (Auto) 3.0 /HPF (0-13.0) 07/12/16 09:17
[2016-07-14] MEDS ORDERED: DULCOLAX PO ONE ×2 (13:34→16:00)
--- NOTE | 2016-07-14 14:04 | Gastroenterology Progress Note ---
Assessment and Plan 1. Metastatic liver masses with unknown primary - Will plan EGD/Colonoscopy as part of work-up. Hold therapeutic lovenox dose prior to procedure. Heme/onc consult. Subjective Date of service: 07/14/16 Principal diagnosis: liver lesions, DVT Interval history: No events overnight. Reports some mild improvement in RUQ abd pain. Tolerating po Objective - Constitutional Vitals: Temp Pulse Resp BP Pulse Ox 98.9 F 95 H 20 135/60 96 07/14/16 07:00 07/14/16 07:00 07/14/16 09:00 07/14/16 09:00 07/14/16 07:00 General appearance: no acute distress, obese - Respiratory Respiratory effort: normal Respiratory: bilateral: diminished - Cardiovascular Rhythm: regular Heart Sounds: Present: S1 & S2 - Extremities Extremities: No edema - Gastrointestinal General gastrointestinal: Present: soft, tender (ruq), non-distended - Neurologic Neurological: alert and oriented x3 - Psychiatric Psychiatric: appropriate mood/affect - Labs CBC & Chem 7: 07/14/16 07:20 07/14/16 07:20 Labs: Laboratory Results - last 24 hr 07/13/16 07/13/16 07/14/16 16:24 21:34 06:20 WBC RBC Hgb Hct MCV MCH MCHC RDW Plt Count Sodium Potassium Chloride Carbon Dioxide Anion Gap BUN Creatinine Estimated GFR BUN/Creatinine Ratio Glucose POC Glucose 108 H 190 H 112 H Calcium 07/14/16 07/14/16 07/14/16 07:20 07:20 11:44 WBC 12.0 H RBC 4.50 Hgb 11.9 Hct 37.0 MCV 82 MCH 26 L MCHC 32 RDW 14.7 Plt Count 276 Sodium 142 Potassium 4.0 Chloride 97.9 L Carbon Dioxide 27 Anion Gap 21 BUN 13 Creatinine 0.7 Estimated GFR > 60 BUN/Creatinine Ratio 18.57 Glucose 137 H POC Glucose 149 H Calcium 9.6 - Imaging CT scan: report reviewed
[2016-07-14] MEDS ORDERED: GOLYTELY PO ONE (16:00)
[2016-07-14] MEDS: ZOCOR PO SCH (21:08)
[2016-07-14] MEDS: NOVOLOG SUB-Q SCH (21:45)
--- NOTE | 2016-07-14 23:02 | Consultation ---
History of Present Illness - Reason for Consult Consult date: 07/14/16 Multiple liver lesions. Requesting physician: RAQUEL SHEFFIELD - History of Present Illness Thank you for this consult, patient seen/examined, record reviewed, case d/w patient. as per hew account, she came from [place] 3w ago to visit her daughter , when she felt pain in her left leg better with pain meds. She also reported right upper quadrant pain. no N/V, no weight loss.She [id number] any work association. she has been around cement /sands back home.She has not visisited any other country lately.Her daughter is a local pharmacist here in town. She is scheduled for GI scope with possible liver bx. she has denied any blood per rectum.Please see full patrick, while awaiting tissue by GI scope. Past History Past Medical History: diabetes, hypertension, hyperlipidemia Past Surgical History: hysterectomy Social history: full code. denies: smoking, alcohol abuse, prescription drug abuse Family history: no significant family history Medications and Allergies Allergies Allergy/AdvReac Type Severity Reaction Status Date / Time ibuprofen [From Motrin] Allergy Hives Verified 07/12/16 08:18 Home Medications Medication Instructions Recorded Confirmed Last Taken Type Lisinopril [Zestril TAB] 40 mg PO QDAY 07/12/16 07/12/16 Unknown History Simvastatin [Zocor TAB] 20 mg PO QHS 07/12/16 07/12/16 Unknown History glipiZIDE [Glucotrol] 5 mg PO BID 07/12/16 07/12/16 Unknown History metFORMIN [Glucophage] 1,000 mg PO BID 07/12/16 07/12/16 Unknown History traMADol [Ultram] 50 mg PO BID 07/12/16 07/12/16 07/12/16 History Active Meds: Active Medications Dextrose (D50w (25gm)) 50 ml IV PRN PRN PRN Reason: Hypoglycemia Enoxaparin Sodium (Lovenox) 80 mg SUB-Q BID [facility] Stop: 07/14/16 23:59 Last Admin: 07/14/16 21:09 Dose: 80 mg Insulin Aspart (Novolog) 0 units SUB-Q QHS [facility] PRN Reason: Protocol Last Admin: 07/13/16 23:26 Dose: 3 units Lisinopril (Zestril) 40 mg PO QDAY [facility] Last Admin: 07/14/16 09:00 Dose: 40 mg Oxycodone/Acetaminophen (Percocet 5/325) 1 tab PO Q4H PRN PRN Reason: Pain, Moderate (4-6) Simvastatin (Zocor) 20 mg PO QHS [facility] Last Admin: 07/14/16 21:08 Dose: 20 mg Tramadol HCl (Ultram) 50 mg PO BID [facility] Last Admin: 07/14/16 21:08 Dose: 50 mg Review of Systems Constitutional: chronic pain Exam - Constitutional Vitals: Temp Pulse Resp BP Pulse Ox 99.8 F H 97 H 18 147/84 97 07/14/16 21:06 07/14/16 21:06 07/14/16 21:06 07/14/16 21:06 07/14/16 21:06 General appearance: Present: no acute distress, well-nourished - EENT Eyes: Present: PERRL, scleral icterus ENT: hearing intact, clear oral mucosa - Neck Neck: Present: supple, normal ROM - Respiratory Respiratory effort: normal Respiratory: bilateral: CTA - Cardiovascular Heart Sounds: Present: S1 & S2. Absent: rub, click - Extremities Extremities: pulses symmetrical, No edema Peripheral Pulses: within normal limits - Abdominal General gastrointestinal: Present: soft, tender, non-distended, normal bowel sounds, hepatomegaly Localized gastrointestinal: tender: RUQ - Integumentary Integumentary: Present: clear, warm, dry - Musculoskeletal Musculoskeletal: gait normal, strength equal bilaterally - Psychiatric Psychiatric: appropriate mood/affect, intact judgment & insight - Neurologic Neurologic: CNII-XII intact, moves all extremities Results - Labs CBC & Chem 7: 07/14/16 07:20 07/14/16 07:20 Labs: Abnormal lab results 07/14/16 07/14/16 07/14/16 Range/Units 06:20 07:20 07:20 WBC 12.0 H (4.5-11.0) K/mm3 MCH 26 L (28-32) pg Chloride 97.9 L (98-107) mmol/L Glucose 137 H (65-100) mg/dL POC Glucose 112 H (70-105) 07/14/16 07/14/16 07/14/16 Range/Units 11:44 16:59 21:32 WBC (4.5-11.0) K/mm3 MCH (28-32) pg Chloride (98-107) mmol/L Glucose (65-100) mg/dL POC Glucose 149 H 189 H 108 H (70-105) Assessment and Plan - Patient Problems (1) Abdominal pain Current Visit: Yes Status: Acute Qualifiers: Abdominal location: right upper quadrant Qualified Code(s): R10.11 - Right upper quadrant pain Plan to address problem: consistent with the liver lesions. (2) Liver masses Current Visit: Yes Status: Acute Plan to address problem: await tissue bx via GI scope. (3) DVT, bilateral lower limbs Current Visit: Yes Status: Acute Qualifiers: Affected thrombotic vein of extremity: unspecified vein of extremity Chronicity: acute Qualified Code(s): I82.403 - Acute embolism and thrombosis of unspecified deep veins of lower extremity, bilateral Plan to address problem: I did not see scan diagnostic of DVT., but if record proves this, it will not be suprising, and will rec treating as per standard..
[2016-07-15 01:31] LABS: Alanine Aminotransferase 55 units/L (7-56); Alkaline Phosphatase 131 units/L (35-129)
--- NOTE | 2016-07-15 09:03 | Progress Note ---
Assessment and Plan Assessment and plan: 61-year-old [place] female with past medical history significant for hypertension, hyperlipidemia, diabetes mellitus presented to the emergency department complaining of abdominal pain that started 6 hours ago. Pain is in the right upper quadrant area, pinching type, 10 out of 10, with no radiation, exacerbating factors identified, pain relieved with pain medications. Patient is also complaining bilateral pain in the lower extremities, with associated swelling. Patient traveled recently from [facility]. Patient had with loss of 16 pounds over 4 months. No fever, chills, loss of appetite. Patient had occasional cough. 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 oncology consult pending, * GI input appreciated, patient is planned for endoscopy and colonoscopy today * continue lovenox, hold am dose for EGD/ Cscope * Await alpha-fetoprotein * Oncology consult appreciated * CT chest reviewed no lesions in the chest at this time. * Continue sliding scale coverage and blood pressure control with Accu-Cheks and simvastatin * Plan of care discussed with the patient also with the daughter Ms Alfred at - [phone] * DVT ppx- fully anticoagulated History Interval history: she feels well, has no complaints Hospitalist Physical - Physical exam Narrative exam: VITAL SIGNS: Reviewed. GENERAL: The patient appeared well nourished and normally developed. Vital signs as documented. HEAD: No signs of head trauma. EYES: Pupils are equal. Extraocular motions intact. EARS: Hearing grossly intact. MOUTH: Oropharynx is normal. NECK: No adenopathy, no JVD. CHEST: Chest with clear breath sounds bilaterally. No wheezes, rales, or rhonchi. CARDIAC: Regular rate and rhythm. S1 and S2, without murmurs, gallops, or rubs. VASCULAR: No Edema. Peripheral pulses normal and equal in all extremities. ABDOMEN: Soft, without detectable tenderness. No sign of distention. No rebound or guarding, and no masses palpated. Bowel Sounds normal. MUSCULOSKELETAL: Good range of motion of all major joints. Extremities without clubbing, cyanosis or edema. NEUROLOGIC EXAM: Alert and oriented x 3. No focal sensory or strength deficits. Speech normal. Follows commands. PSYCHIATRIC: Mood normal. SKIN: No rash or lesions. - Constitutional Vitals: Temp Pulse Resp BP Pulse Ox 99.1 F 97 H 20 119/70 95 07/15/16 00:00 07/15/16 00:00 07/15/16 00:00 07/15/16 00:00 07/15/16 00:00 General appearance: Present: no acute distress, well-nourished Results - Labs CBC & Chem 7: 07/14/16 07:20 07/14/16 07:20 Labs: Laboratory Last Values WBC 12.0 K/mm3 (4.5-11.0) H 07/14/16 07:20 RBC 4.50 M/mm3 (3.65-5.03) 07/14/16 07:20 Hgb 11.9 gm/dl (10.1-14.3) 07/14/16 07:20 Hct 37.0 % (30.3-42.9) 07/14/16 07:20 MCV 82 fl (79-97) 07/14/16 07:20 MCH 26 pg (28-32) L 07/14/16 07:20 MCHC 32 % (30-34) 07/14/16 07:20 RDW 14.7 % (13.2-15.2) 07/14/16 07:20 Plt Count 276 K/mm3 (140-440) 07/14/16 07:20 Lymph % (Auto) 22.9 % (13.4-35.0) 07/13/16 05:48 [place] % (Auto) 8.9 % (0.0-7.3) H 07/13/16 05:48 Eos % (Auto) 3.7 % (0.0-4.3) 07/13/16 05:48 Baso % (Auto) 0.2 % (0.0-1.8) 07/13/16 05:48 Lymph # 2.4 K/mm3 (1.2-5.4) 07/13/16 05:48 [place] # 0.9 K/mm3 (0.0-0.8) H 07/13/16 05:48 Eos # 0.4 K/mm3 (0.0-0.4) 07/13/16 05:48 Baso # 0.0 K/mm3 (0.0-0.1) 07/13/16 05:48 Seg Neutrophils % 64.3 % (40.0-70.0) 07/13/16 05:48 Seg Neutrophils # 6.9 K/mm3 (1.8-7.7) 07/13/16 05:48 PT 13.0 Sec. (12.2-14.9) 07/13/16 09:31 INR 0.99 (0.87-1.13) 07/13/16 09:31 Sodium 142 mmol/L (137-145) 07/14/16 07:20 Potassium 4.0 mmol/L (3.6-5.0) 07/14/16 07:20 Chloride 97.9 mmol/L (98-107) L 07/14/16 07:20 Carbon Dioxide 27 mmol/L (22-30) 07/14/16 07:20 Anion Gap 21 mmol/L 07/14/16 07:20 BUN 13 mg/dL (7-17) 07/14/16 07:20 Creatinine 0.7 mg/dL (0.7-1.2) 07/14/16 07:20 Estimated GFR > 60 ml/min 07/14/16 07:20 BUN/Creatinine Ratio 18.57 % 07/14/16 07:20 Glucose 137 mg/dL (65-100) H 07/14/16 07:20 POC Glucose 103 (70-105) 07/15/16 06:20 Hemoglobin A1c 6.0 % (4-6) 07/12/16 08:22 Calcium 9.6 mg/dL (8.4-10.2) 07/14/16 07:20 Total Bilirubin 0.60 mg/dL (0.1-1.2) 07/13/16 05:48 AST 20 units/L (5-40) 07/13/16 05:48 ALT 55 units/L (7-56) 07/15/16 00:46 Alkaline Phosphatase 131 units/L (35-129) H 07/15/16 00:46 Total Protein 7.3 g/dL (6.3-8.2) 07/13/16 05:48 Albumin 3.8 g/dL (3.9-5) L 07/13/16 05:48 Albumin/Globulin Ratio 1.1 % 07/13/16 05:48 Triglycerides 97 mg/dL (2-149) 07/12/16 08:22 Cholesterol 163 mg/dL (50-199) 07/12/16 08:22 LDL Cholesterol Direct 84 mg/dL (50-130) 07/12/16 08:22 HDL Cholesterol 60 mg/dL (40-59) H 07/12/16 08:22 Cholesterol/HDL Ratio 2.71 % 07/12/16 08:22 Lipase 27 units/L (13-60) 07/12/16 08:22 Urine Color Yellow (Yellow) 07/12/16 09:17 Urine Turbidity Clear (Clear) 07/12/16 09:17 Urine pH 7.0 (5.0-7.0) 07/12/16 09:17 Ur Specific [place] 1.020 (1.003-1.030) 07/12/16 09:17 Urine Protein <15 mg/dl mg/dL (Negative) 07/12/16 09:17 Urine Glucose (UA) Neg mg/dL (Negative) 07/12/16 09:17 Urine Ketones Neg mg/dL (Negative) 07/12/16 09:17 Urine Blood Sm (Negative) 07/12/16 09:17 Urine Nitrite Neg (Negative) 07/12/16 09:17 Urine Bilirubin Neg (Negative) 07/12/16 09:17 Urine Urobilinogen < 2.0 mg/dL (<2.0) 07/12/16 09:17 Ur Leukocyte Esterase Neg (Negative) 07/12/16 09:17 Urine WBC (Auto) < 1.0 /HPF (0.0-6.0) 07/12/16 09:17 Urine RBC (Auto) 6.0 /HPF (0.0-6.0) 07/12/16 09:17 U Epithel Cells (Auto) 3.0 /HPF (0-13.0) 07/12/16 09:17
[2016-07-15] MEDS: ZESTRIL PO SCH (10:00)
[2016-07-15] MEDS ORDERED: WATER FOR IRRIG STERILE IR ONE (14:12)
[2016-07-15] MEDS ORDERED: WATER FOR IRRIG STERILE ONE (14:12)
[2016-07-15] MEDS ORDERED: DIPRIVAN 10 MG/ML IV ONE ×2 (14:15)
[2016-07-15] MEDS: NACL 0.9% 1000 ML 1,000 ML IV SCH ×2 (14:25→23:19)
--- NOTE | 2016-07-15 14:56 | Anesthesia Day of Surgery ---
Anesthesia Day of Surgery - Day of Surgery Patient Examined: Yes Patient H&P Reviewed: Yes Patient is NPO: Yes
--- NOTE | 2016-07-15 14:58 | Anesthesia Consultation ---
Anesthesia Consult and Med Hx Date of service: 07/15/16 - Airway Anesthetic Teeth Evaluation: Good ROM Head & Neck: Adequate Mental/Hyoid Distance: Adequate Mallampati Class: Class II Intubation Access Assessment: Probably Good - Pulmonary Exam CTA: Yes - Cardiac Exam Cardiac Exam: RRR - Pre-Operative Health Status ASA Pre-Surgery Classification: ASA3 Proposed Anesthetic Plan: MAC - Pulmonary Hx Smoking: No Hx Asthma: No Hx Pneumonia: No - Cardiovascular System Hx Hypertension: Yes (high cholesterol) Hx Heart Attack/AMI: No - Central Nervous System Hx Seizures: No CVA: No - Endocrine Hx Liver Disease: Yes (liver masses found on CT) Hx Non-Insulin Dependent Diabetes: Yes - Other Systems Hx Cancer: No Hx Obesity: Yes - Additional Comments Anesthesia Medical History Comments: NAC
--- NOTE | 2016-07-15 15:04 | Post Operative Note ---
Pre-op diagnosis: liver lesions, weight loss Findings: EGD: gastritis (bx's - otherwise benign Colon: benign Procedure: EGD/colonoscopy Anesthesia: MAC Surgeon: HUMA JACKSON Estimated blood loss: none Pathology: list Specimen disposition: to lab Condition: stable Disposition: floor
--- NOTE | 2016-07-15 15:30 | Post Anesthesia Evaluation ---
- Post Anesthesia Evaluation Patient Participated: Yes Airway Patent: Yes Stable Respiratory Function: Yes Nausea/Vomiting: No Temp > 96.8F: Yes Pain Manageable: Yes Adequeate Hydration: Yes Anesthesia Complications: No Block Receding Appropriately: Not Applicable Patient on Ventilator: No
[2016-07-15] MEDS: PERCOCET 5/325 PO PRN (17:49)
[2016-07-15] MEDS: ULTRAM PO SCH ×2 (19:59→23:17)
--- NOTE | 2016-07-15 20:37 | Operative Report ---
PROCEDURE: Colonoscopy. INDICATION: 1. Anemia. 2. Weight loss. 3. Adenoma on CT scan. MEDICATIONS: Propofol per HOME PLANNING CONSULTANT SALESPERSON. COMPLICATIONS: None. DESCRIPTION OF PROCEDURE: The patient brought to procedure suite. The patient had the procedure discussed with her at length. All risks, complications, and benefits discussed after which the patient signed for the procedure to be performed. The patient was placed in left lateral decubitus position. Rectal exam performed prior to insertion of the scope. After adequate sedation medication as above, the scope was introduced into the rectum and brought to the level of the cecum. Ileocecal valve and appendiceal orifice, cecal strap adequately visualized. Colonoscope was then removed and the mucosa of the colon completely and adequately visualized. Prep quality for this procedure was fair. The patient's vital signs remained stable throughout. FINDINGS: There were no mass lesions, polyps, or diverticula noted during this procedure. Retroflexion view performed in the rectum showed small internal hemorrhoids. The patient tolerated the procedure well. No complications during the procedure. IMPRESSION: 1. Internal hemorrhoids. 2. Otherwise, normal colonoscopy. RECOMMENDATIONS: 1. Continue current medications and diet. 2. CT-guided liver biopsy ____ lesion. 3. Await for further oncology input. 4. We will follow up in a.m. JOB# [id number] [facility]
--- NOTE | 2016-07-15 20:45 | Operative Report ---
PROCEDURE: Esophagogastroduodenoscopy with cold biopsy. INDICATION: 1. Anemia. 2. Weight loss. 3. Abnormal CT scan. MEDICATIONS: Propofol per BOAT RIGGER. COMPLICATIONS: None. DESCRIPTION OF PROCEDURE: The patient brought to procedure suite. The patient had the procedure discussed with her at length. All risks, complications, and benefits discussed after which the patient signed for the procedure to be performed. The patient was placed in the left lateral decubitus position. Mouth block was placed in the patient's oral cavity. After adequate sedation medication as above, endoscope was introduced into the mouth and brought to the second portion of duodenum. Retroflexion view performed. The patient's vital signs remained stable throughout the procedure. FINDINGS: There was noted to be a small hiatal hernia at GE junction, which was 38 cm from the gums. The esophagus otherwise appeared to be normal. Mild gastritis noted. Biopsies were taken and sent to Pathology. The remaining stomach otherwise appeared to be normal. Duodenum appeared to be normal. Retroflexion view performed in the stomach and showed no other pathology other than noted above. The patient tolerated the procedure well. No complications during the procedure. IMPRESSION: 1. Hiatal hernia. 2. Gastritis, biopsies performed. 3. Otherwise, normal EGD. RECOMMENDATIONS: 1. Follow up biopsy results. 2. Continue current medications and diet. 3. Colonoscopy and follow further recommendations based on colonoscopy results. [facility]# [id number] [facility]
[2016-07-15] MEDS ORDERED: LOVENOX SUB-Q SCH (22:00)
[2016-07-15] MEDS: NOVOLOG SUB-Q SCH (23:19)
[2016-07-15] MEDS: LOVENOX SUB-Q SCH (23:22)
[2016-07-15] MEDS: ZOCOR PO SCH (23:26)
--- NOTE | 2016-07-16 00:30 | Consultation ---
History of Present Illness - Reason for Consult Consult date: 07/15/16 - History of Present Illness Patient seen/examined, labs reviewed/d/w patient. She is s/p GI scope, no real findings. she is set for liver bx.,and again, once that is done, she does not need to remain in the hospital. she may follow up for result review in the office. Past History Past Medical History: diabetes, hypertension, hyperlipidemia Past Surgical History: hysterectomy Social history: full code. denies: smoking, alcohol abuse, prescription drug abuse Family history: no significant family history Medications and Allergies Allergies Allergy/AdvReac Type Severity Reaction Status Date / Time ibuprofen [From Motrin] Allergy Hives Verified 07/12/16 08:18 Home Medications Medication Instructions Recorded Confirmed Last Taken Type Lisinopril [Zestril TAB] 40 mg PO QDAY 07/12/16 07/12/16 Unknown History Simvastatin [Zocor TAB] 20 mg PO QHS 07/12/16 07/12/16 Unknown History glipiZIDE [Glucotrol] 5 mg PO BID 07/12/16 07/12/16 Unknown History metFORMIN [Glucophage] 1,000 mg PO BID 07/12/16 07/12/16 Unknown History traMADol [Ultram] 50 mg PO BID 07/12/16 07/12/16 07/12/16 History Active Meds: Active Medications Dextrose (D50w (25gm)) 50 ml IV PRN PRN PRN Reason: Hypoglycemia Enoxaparin Sodium (Lovenox) 80 mg SUB-Q Q12HR [facility] Last Admin: 07/15/16 23:22 Dose: Not Given Sodium Chloride (Nacl 0.9% 1000 Ml) 1,000 mls @ 50 mls/hr IV DIRECT [facility] Last Admin: 07/15/16 23:19 Dose: 50 mls/hr Insulin Aspart (Novolog) 0 units SUB-Q QHS MADELAINE PRN Reason: Protocol Last Admin: 07/15/16 23:19 Dose: 3 units Lisinopril (Zestril) 40 mg PO QDAY [facility] Last Admin: 07/15/16 10:00 Dose: Not Given Oxycodone/Acetaminophen (Percocet 5/325) 1 tab PO Q4H PRN PRN Reason: Pain, Moderate (4-6) Last Admin: 07/15/16 17:49 Dose: 1 tab Simvastatin (Zocor) 20 mg PO QHS [facility] Last Admin: 07/15/16 23:26 Dose: 20 mg Tramadol HCl (Ultram) 50 mg PO BID [facility] Last Admin: 07/15/16 23:17 Dose: 50 mg Review of Systems Breasts: deferred Exam - Constitutional Vitals: Temp Pulse Resp BP Pulse Ox 99.7 F H 97 H 18 122/70 97 07/16/16 00:10 07/16/16 00:10 07/16/16 00:10 07/16/16 00:10 07/16/16 00:10 General appearance: Present: no acute distress, well-nourished - EENT Eyes: Present: PERRL ENT: hearing intact, clear oral mucosa - Neck Neck: Present: supple, normal ROM - Respiratory Respiratory effort: normal Respiratory: bilateral: CTA - Cardiovascular Heart Sounds: Present: S1 & S2. Absent: rub, click - Extremities Extremities: pulses symmetrical, No edema Peripheral Pulses: within normal limits - Abdominal General gastrointestinal: Present: soft, non-tender, non-distended, normal bowel sounds Female genitourinary: Present: deferred - Rectal Rectal Exam: deferred - Integumentary Integumentary: Present: clear, warm, dry - Musculoskeletal Musculoskeletal: gait normal, strength equal bilaterally - Psychiatric Psychiatric: appropriate mood/affect, intact judgment & insight - Neurologic Neurologic: CNII-XII intact, moves all extremities Results - Labs CBC & Chem 7: 07/14/16 07:20 07/14/16 07:20 Labs: Abnormal lab results 07/15/16 07/15/16 07/15/16 Range/Units 00:46 12:02 17:20 POC Glucose 117 H 108 H (70-105) Alkaline Phosphatase 131 H (35-129) units/L 07/15/16 Range/Units 21:11 POC Glucose 180 H (70-105) Alkaline Phosphatase (35-129) units/L Assessment and Plan - Patient Problems (1) Abdominal pain Current Visit: Yes Status: Acute Qualifiers: Abdominal location: right upper quadrant Qualified Code(s): R10.11 - Right upper quadrant pain Plan to address problem: consistent with the liver lesions. await bx tomorrow. (2) Liver masses Current Visit: Yes Status: Acute Plan to address problem: await tissue bx via GI scope. await tissue bx. (3) DVT, bilateral lower limbs Current Visit: Yes Status: Acute Qualifiers: Affected thrombotic vein of extremity: unspecified vein of extremity Chronicity: acute Qualified Code(s): I82.403 - Acute embolism and thrombosis of unspecified deep veins of lower extremity, bilateral Plan to address problem: I did not see scan diagnostic of DVT., but if record proves this, it will not be suprising, and will rec treating as per standard..
[2016-07-16] MEDS ORDERED: MORPHINE IV ONE (03:24)
--- NOTE | 2016-07-16 08:33 | Progress Note ---
Assessment and Plan Assessment and plan: 61-year-old Afghan female with past medical history significant for hypertension, hyperlipidemia, diabetes mellitus presented to the emergency department complaining of abdominal pain that started 6 hours ago. Pain is in the right upper quadrant area, pinching type, 10 out of 10, with no radiation, exacerbating factors identified, pain relieved with pain medications. Patient is also complaining bilateral pain in the lower extremities, with associated swelling. Patient traveled recently from [facility]. Patient had with loss of 16 pounds over 4 months. No fever, chills, loss of appetite. Patient had occasional cough. * Bilateral lower extremity DVT continue lovenox Liver masses and celiac LAD CT chest was negative EGD and c scope were benign, IR consult for Liver biopsy Await alpha-fetoprotein DM type 2 continue SSI, will start glucophage after malignancy workup is completed HTN continue current meds, well controlled Hyperlipidemia continue Reginaldo Quarles Ms Alfred at -[phone], plan discussed with her * Hospitalist Physical - Constitutional Vitals: Temp Pulse Resp BP Pulse Ox 99.7 F H 97 H 18 122/70 97 07/16/16 00:10 07/16/16 00:10 07/16/16 03:33 07/16/16 00:10 07/16/16 00:10 General appearance: Present: no acute distress, well-nourished Results - Labs CBC & Chem 7: 07/14/16 07:20 07/14/16 07:20 Labs: Laboratory Last Values WBC 12.0 K/mm3 (4.5-11.0) H 07/14/16 07:20 RBC 4.50 M/mm3 (3.65-5.03) 07/14/16 07:20 Hgb 11.9 gm/dl (10.1-14.3) 07/14/16 07:20 Hct 37.0 % (30.3-42.9) 07/14/16 07:20 MCV 82 fl (79-97) 07/14/16 07:20 MCH 26 pg (28-32) L 07/14/16 07:20 MCHC 32 % (30-34) 07/14/16 07:20 RDW 14.7 % (13.2-15.2) 07/14/16 07:20 Plt Count 276 K/mm3 (140-440) 07/14/16 07:20 Lymph % (Auto) 22.9 % (13.4-35.0) 07/13/16 05:48 [place] % (Auto) 8.9 % (0.0-7.3) H 07/13/16 05:48 Eos % (Auto) 3.7 % (0.0-4.3) 07/13/16 05:48 Baso % (Auto) 0.2 % (0.0-1.8) 07/13/16 05:48 Lymph # 2.4 K/mm3 (1.2-5.4) 07/13/16 05:48 [place] # 0.9 K/mm3 (0.0-0.8) H 07/13/16 05:48 Eos # 0.4 K/mm3 (0.0-0.4) 07/13/16 05:48 Baso # 0.0 K/mm3 (0.0-0.1) 07/13/16 05:48 Seg Neutrophils % 64.3 % (40.0-70.0) 07/13/16 05:48 Seg Neutrophils # 6.9 K/mm3 (1.8-7.7) 07/13/16 05:48 PT 13.0 Sec. (12.2-14.9) 07/13/16 09:31 INR 0.99 (0.87-1.13) 07/13/16 09:31 Sodium 142 mmol/L (137-145) 07/14/16 07:20 Potassium 4.0 mmol/L (3.6-5.0) 07/14/16 07:20 Chloride 97.9 mmol/L (98-107) L 07/14/16 07:20 Carbon Dioxide 27 mmol/L (22-30) 07/14/16 07:20 Anion Gap 21 mmol/L 07/14/16 07:20 BUN 13 mg/dL (7-17) 07/14/16 07:20 Creatinine 0.7 mg/dL (0.7-1.2) 07/14/16 07:20 Estimated GFR > 60 ml/min 07/14/16 07:20 BUN/Creatinine Ratio 18.57 % 07/14/16 07:20 Glucose 137 mg/dL (65-100) H 07/14/16 07:20 POC Glucose 196 (70-105) H 07/16/16 05:26 Hemoglobin A1c 6.0 % (4-6) 07/12/16 08:22 Calcium 9.6 mg/dL (8.4-10.2) 07/14/16 07:20 Total Bilirubin 0.60 mg/dL (0.1-1.2) 07/13/16 05:48 AST 20 units/L (5-40) 07/13/16 05:48 ALT 55 units/L (7-56) 07/15/16 00:46 Alkaline Phosphatase 131 units/L (35-129) H 07/15/16 00:46 Total Protein 7.3 g/dL (6.3-8.2) 07/13/16 05:48 Albumin 3.8 g/dL (3.9-5) L 07/13/16 05:48 Albumin/Globulin Ratio 1.1 % 07/13/16 05:48 Triglycerides 97 mg/dL (2-149) 07/12/16 08:22 Cholesterol 163 mg/dL (50-199) 07/12/16 08:22 LDL Cholesterol Direct 84 mg/dL (50-130) 07/12/16 08:22 HDL Cholesterol 60 mg/dL (40-59) H 07/12/16 08:22 Cholesterol/HDL Ratio 2.71 % 07/12/16 08:22 Lipase 27 units/L (13-60) 07/12/16 08:22 Urine Color Yellow (Yellow) 07/12/16 09:17 Urine Turbidity Clear (Clear) 07/12/16 09:17 Urine pH 7.0 (5.0-7.0) 07/12/16 09:17 Ur Specific [place] 1.020 (1.003-1.030) 07/12/16 09:17 Urine Protein <15 mg/dl mg/dL (Negative) 07/12/16 09:17 Urine Glucose (UA) Neg mg/dL (Negative) 07/12/16 09:17 Urine Ketones Neg mg/dL (Negative) 07/12/16 09:17 Urine Blood Sm (Negative) 07/12/16 09:17 Urine Nitrite Neg (Negative) 07/12/16 09:17 Urine Bilirubin Neg (Negative) 07/12/16 09:17 Urine Urobilinogen < 2.0 mg/dL (<2.0) 07/12/16 09:17 Ur Leukocyte Esterase Neg (Negative) 07/12/16 09:17 Urine WBC (Auto) < 1.0 /HPF (0.0-6.0) 07/12/16 09:17 Urine RBC (Auto) 6.0 /HPF (0.0-6.0) 07/12/16 09:17 U Epithel Cells (Auto) 3.0 /HPF (0-13.0) 07/12/16 09:17
[2016-07-16] MEDS ORDERED: VERSED IV ONE ×2 (08:38→09:00)
[2016-07-16] MEDS ORDERED: SUBLIMAZE ONE (08:38)
[2016-07-16] MEDS ORDERED: SUBLIMAZE IV ONE (09:00)
--- NOTE | 2016-07-16 10:23 | Cat Scan Report ---
CT BIOPSY LIVER HISTORY: Multiple liver masses, metastatic disease. DESCRIPTION OF PROCEDURE: Informed consent was obtained. Sterile technique was utilized. Conscious sedation with Versed and fentanyl. The patient was sedated for 20 minutes. Independent cardiorespiratory monitoring by RN. Intraobserver time of [address] guidance, a 17-gauge introducer needle was advanced to the leading edge of a 4.2 cm right hepatic lobe mass. Two 18-gauge core biopsies were obtained. The samples were deemed adequate by the pathologist on site. Followup scan demonstrates no evidence for hemorrhage. The patient tolerated the procedure without difficulty. IMPRESSION: Successful CT-guided biopsy of a right hepatic lobe mass as described.
--- NOTE | 2016-07-16 10:33 | Discharge Summary ---
Providers - Providers Date of Admission: 07/12/16 13:02 Attending physician: NNAI JENKINS MD 07/12/16 13:30 Consult to Physician [CONS] Routine Consulting Provider: FELISA TREJO Reason For Exam: liver mets Place consult to:: oncology Notified:: ANSWERING SERVICES Phone number called:: [phone] Was contact made?: Yes If yes, spoke with:: ESTEFANY Time called:: 14:49 Comment:: PAT NOTIFIED 07/13/16 09:02 Consult to Physician [CONS] Routine Consulting Provider: ARTIS BENOIT Reason For Exam: abdominal pain, hepatic lesion, ?colon primary Place consult to:: dr. benoit Notified:: answering service Phone number called:: Was contact made?: Yes If yes, spoke with:: leeann Time called:: 09:12 07/16/16 08:30 Consult to Interventional Radiology [CONS] Routine Consulting Provider: MACKENZIE COHEN Reason For Exam: needs bx of liver mass Place consult to:: dr. cohen Notified:: office Phone number called:: [phone] Was contact made?: Yes If yes, spoke with:: alexis Time called:: 09:48 Primary care physician: HOSPITALITY AIDE Hospitalization Condition: Stable Hospital course: 61-year-old [place] female with past medical history significant for hypertension, hyperlipidemia, diabetes mellitus presented to the emergency department who had just had clean right greater than 10 hours and presented with right upper quadrant pain. She is also complaining of swelling in her bilateral lower extremities. And weight loss of 16 pounds over 4 months. She was admitted to the hospital she was worked up and found to have bilateral DVT and liver masses suspicious for malignancy along with celiac lymphadenopathy. She went on to have EGD and colonoscopy which were benign, she also had chest imaging that did not show any masses or nodules, she went on to have liver biopsy. She is being sent home on Lovenox for anticoagulation pending malignancy workup completion. She is to follow-up with GI and hematology in 2- 3 weeks for her pathology results. High diagnoses and plan of care were discussed at length with the patient and her daughter Wumi Discharge diagnoses * Bilateral lower extremity DVT Liver masses and celiac LAD DM type 2 HTN Disposition: DISCHARGED TO HOME OR SELFCARE Time spent for discharge: 35 minutes Core Measure Documentation - Palliative Care Palliative Care/ Comfort Measures: Not Applicable - Core Measures Any of the following diagnoses?: DVT/PE - VTE Discharge Requirements Deep Vein Thrombosis/Pulmonary Embolism Present on Admission: Yes Has pt received <5 days of overlap therapy or INR<2.0: Yes Anticoagulant overlap therapy prescribed at discharge: Yes Exam - Physical Exam Narrative exam: VITAL SIGNS: Reviewed. GENERAL: The patient appeared well nourished and normally developed. Vital signs as documented. HEAD: No signs of head trauma. EYES: Pupils are equal. Extraocular motions intact. EARS: Hearing grossly intact. MOUTH: Oropharynx is normal. NECK: No adenopathy, no JVD. CHEST: Chest with clear breath sounds bilaterally. No wheezes, rales, or rhonchi. CARDIAC: Regular rate and rhythm. S1 and S2, without murmurs, gallops, or rubs. VASCULAR: No Edema. Peripheral pulses normal and equal in all extremities. ABDOMEN: Soft, without detectable tenderness. No sign of distention. No rebound or guarding, and no masses palpated. Bowel Sounds normal. MUSCULOSKELETAL: Good range of motion of all major joints. Extremities without clubbing, cyanosis or edema. NEUROLOGIC EXAM: Alert and oriented x 3. No focal sensory or strength deficits. Speech normal. Follows commands. PSYCHIATRIC: Mood normal. SKIN: No rash or lesions. - Constitutional Vitals: Temp Pulse Resp BP Pulse Ox 98.8 F 93 H 17 159/84 98 07/16/16 07:00 07/16/16 07:00 07/16/16 07:00 07/16/16 07:00 07/16/16 07:00 Plan Follow up with: PRIMARY CARE, [Primary Care Provider] - 3-5 Days Prescriptions: Simvastatin [Zocor TAB] 20 mg PO QHS #30 tablet Enoxaparin [Lovenox] 80 mg SUB-Q Q12HR #20 syringe glipiZIDE [Glucotrol] 5 mg PO BID #60 tablet Lisinopril [Zestril TAB] 40 mg PO QDAY #30 tablet metFORMIN [Glucophage] 1,000 mg PO BID #120 tablet oxyCODONE /ACETAMINOPHEN [Percocet 5/325 mg] 1 tab PO Q4H PRN #14 tablet PRN Reason: Pain, Moderate (4-6) traMADol [Ultram 50 MG tab] 50 mg PO BID #60 tablet
[2016-07-16] MEDS: ULTRAM PO SCH (11:33)
[2016-07-16] MEDS: LOVENOX SUB-Q SCH (11:33)
[2016-07-16] MEDS: ZESTRIL PO SCH (11:33)
--- NOTE | 2016-07-16 12:22 | Event Note ---
Date: 07/16/16 Noted plans for discharge today. S/P Liver biopsy. I have discussed with patient regarding follow up in clinic in 3 weeks for pathology of liver biopsy. Office information provided, patient is agreeable to POC. GI will sign off. Estella Govea, ACNP-BC
--- NOTE | 2016-07-16 15:13 | Vascular Lab Report ---
LOWER EXTREMITY VENOUS DUPLEX: REASON FOR EXAM: Pain of the lower extremities. COMMENTS ON THE RIGHT: The acute deep venous thrombus in the right posterior tibial vein in the calf. The remaining veins visualized are freely compressible without evidence of internal echogenicity. Spontaneous and phasic flow is present proximally. COMMENTS ON THE LEFT: Acute deep venous thrombus in the left popliteal vein extending inferiorly into the posterior tibial and peroneal veins of the calf. The remaining veins visualized are freely compressible without evidence of internal echogenicity. Spontaneous and phasic flow is diminished proximally. IMPRESSION: Acute right lower extremity infrapopliteal deep venous thrombus. Acute left lower extremity popliteal and infrapopliteal deep venous thrombus.
[2016-07-16 16:56] VITALS: BP 159/75
[2016-07-16] MEDS: PERCOCET 5/325 PO PRN (17:53)
== END 2016-07-16 19:00 | disposition home or self-care (01) | DRG 301 ==
LOC: ED 07:55 → 3A 13:02
PROVIDERS: ADMIT Internal Medicine; ATTEND Internal Medicine
PROC: 0DB68ZX Excision of Stomach, Via Natural or Artificial Opening Endoscopic, Diagnostic (ICD-10-PCS; principal; 2016-07-15)
PROC: 0DJD8ZZ Inspection of Lower Intestinal Tract, Via Natural or Artificial Opening Endoscopic (ICD-10-PCS; 2016-07-15)
PROC: 0FB13ZX Excision of Right Lobe Liver, Percutaneous Approach, Diagnostic (ICD-10-PCS; 2016-07-15)
DX: I82.403 Acute embolism and thrombosis of unspecified deep veins of lower extremity, bilateral (principal); R16.0 Hepatomegaly, not elsewhere classified; R10.9 Unspecified abdominal pain; E78.5 Hyperlipidemia, unspecified; I10 Essential (primary) hypertension; E11.9 Type 2 diabetes mellitus without complications; Z90.710 Acquired absence of both cervix and uterus; Z88.8 Allergy status to other drugs, medicaments and biological substances; E66.9 Obesity, unspecified; Z68.32 Body mass index [BMI] 32.0-32.9, adult; D64.9 Anemia, unspecified; K64.8 Other hemorrhoids; K44.9 Diaphragmatic hernia without obstruction or gangrene; K76.9 Liver disease, unspecified; K90.0 Celiac disease
CPT/HCPCS: 36415; 47000; 71250; 74177; 76705; 77012; 80048; 80053; 80061; 81001; 82106; 82378; 82962; 83036; 83690; 84075; 84460; 85025; 85027; 85610; 86300; 86301; 86304; 88172; 88173; 88305; 88307; 88333; 88342; 93970; 96372; J1650; J1815; J2250; J2270; J2704; J3010; J7030; Q9967